=== PATIENT | female | born 1995 | race Caucasian/White ===

== ENCOUNTER 2021-04-08 05:10 | Emergency (ER) | payer MEDICAID ==
[~2021-04-08] VITALS: Ht 170.2 cm; Wt 59.0 kg
[2021-04-08 05:26] VITALS: BP 130/100
--- NOTE | 2021-04-08 05:29 | PHYS DOC ---
Past Medical History Past Medical History: No Pertinent History, Alcoholism (FRANKIE FARIA DO) Past Surgical History: No Surgical History (FRANKIE FARIA DO) Alcohol Use: Heavy Drug Use: None (FRANKIE FARIA DO) General Adult EDM: Chief Complaint: SHOULDER INJURY Problems: (1) Shoulder pain, acute (FRANKIE FARIA DO) HPI: HPI: 26-year-old female presents to the emergency department complaining of right shoulder pain that occurred about 1 hour ago when she fell in the kitchen after drinking alcohol. She admits that she drank about 1 pint of [place] today and fell in the kitchen. She denies any further pain, head trauma, altered sensation of the arm or forearm, forearm pain, hand pain. She notes that her lateral range of motion of the right shoulder limited secondary to pain. Denies fever cough shortness of breath, further intoxicants. (FRANKIE FARIA DO) Review of Systems: Review of Systems: Review of systems otherwise unremarkable except for what was mentioned in the HPI (FRANKIE FARIA DO) Heart Score: C/O Chest Pain: No (FRANKIE FARIA DO) C/O Chest Pain: N/A (GALA ERIC DO) Allergies: Allergies: Allergies Coded Allergies Type Severity Reaction Last Updated Verified latex Allergy Unknown 04/08/21 Yes (FRANKIE FARIA DO) Physical Exam: PE: Constitutional: No acute distress, non-toxic appearance. HENT: Atraumatic, bilateral external ears normal, nose normal. Eyes: PERRLA, EOMI, conjunctiva normal, no discharge. Neck: Normal range of motion, supple, no stridor. Cardiovascular: Heart rate regular rhythm. 2+ radial pulses Lungs & Thorax: No respiratory distress, symmetrical expansion. Bilateral breath sounds clear to auscultation Abdomen: Soft, no tenderness Skin: Warm, dry. Extremities: Right shoulder deformity is noted, no forearm tenderness, no humeral tenderness, no elbow tenderness no wrist tenderness Neurologic: Alert and oriented X 3, normal motor function, normal sensory function, no focal deficits noted. Non ataxic gait. GCS 15. Psychologic: Affect normal, judgment normal, mood normal. (FRANKIE FARIA DO) Current Patient Data: Labs: Laboratory Tests Test 04/08/21 05:17 POC Urine HCG, Qualitative Hcg negative (Negative) (FRANKIE FARIA DO) Radiology/Procedures: Radiology/Procedures: [facility] [address] [place], [place] [id number] IMAGING REPORT Signed PATIENT: TONI KUNZ ACCOUNT: [id number] : 1995 LOCATION: ER AGE: 26 SEX: F EXAM STATUS: REG ER ORD. PHYSICIAN: FRANKIE FARIA DO REASON: shoulder pain PROCEDURE: SHOULDER 2+V RIGHT Study: XR SHOULDER_RIGHT 2+ VIEWS Indication: Shoulder pain. Comparison: None. Findings: Mild widening of the AC joint. Lateral downsloping of the acromion. Glenohumeral joint alignment is normal. No acute fracture. Impression: Mild widening of the AC joint. This could be chronic but correlate for pinpoint tenderness to suggest grade 1 AC joint injury. No acute fracture or glenohumeral dislocation. Electronically signed by: SIRENA CORONADO MD (04/08/2021 6:44 AM) [facility] DICTATED and SIGNED BY: SIRENA CORONADO MD DATE: 04/08/21 [id number] (GALA ERIC DO) Course & Med Decision Making: Course & Med Decision Making Transfer care to Dr. Eric at 0600, pending x-ray (FRANKIE FARIA DO) Course & Med Decision Making Patient is a 26-year-old female who present to ER after a fall this morning, complains of right shoulder pain. X-ray of the right shoulder show some mild AC joint separation. Patient denies any chest pain, no pelvic pain, no back pain, no hip pain, no head or neck injury. Patient declines any pain medication at this time. Patient be discharged home with a home sling, she will need to follow-up with orthopedics for outpatient evaluation. (GALA ERIC DO) Departure Departure Impression: Primary Impression: Acromioclavicular joint separation, type 1 Disposition: 01 HOME / SELF CARE / HOMELESS Condition: STABLE Referrals: NO PCP (PCP) MARY CHOW DO Please call this orthopedic surgeon for outpatient follow up next week. Patient Instructions: Shoulder Separation Additional Instructions: Thank you for visiting our Emergency Department. We appreciate you trusting us with your care. If any additional problems come up don't hesitate to return to visit us. Please follow up with your primary care provider so they can plan additional care if needed and know about the problem that you had. If symptoms worsen come back to the Emergency Department. Any concerning symptoms that start such as chest pain, shortness of air, weakness or numbness on one side of the body, running high fevers or any other concerning symptoms return to the ER. Scripts Naproxen Sodium (ANAPROX DS) 550 Mg Tablet 1 TAB PO BID PRN for PAIN for 15 Days, #30 TAB 0 Refills Prov: GALA ERIC DO 04/08/21 FRANKIE FARIA DO Apr 08, 2021 05:29 GLAA ERIC DO Apr 08, 2021 07:24
--- NOTE | 2021-04-08 06:46 | RAD ---
Study: XR SHOULDER_RIGHT 2+ VIEWS Indication: Shoulder pain. Comparison: None. Findings: Mild widening of the AC joint. Lateral downsloping of the acromion. Glenohumeral joint alignment is n ormal. No acute fracture. Impression: Mild widening of the AC joint. This could be chronic but correlate for pinpoint tenderness to suggest grade 1 AC joint injury. No acute fracture or glenohumeral dislocation. Electronically signed by: SIRENA CORONADO MD (04/08/2021 6:44 AM) [facility]
[2021-04-08] MEDS ORDERED: NAPR-682 PO (07:24)
== END 2021-04-08 07:30 | disposition home or self-care (01) ==
LOC: ER 05:10
DX: S43.101A Unspecified dislocation of right acromioclavicular joint, initial encounter (principal); Z91.040 Latex allergy status; W18.39XA Other fall on same level, initial encounter; Y93.89 Activity, other specified; Y92.090 Kitchen in other non-institutional residence as the place of occurrence of the external cause; Y99.8 Other external cause status
CPT/HCPCS: 73030; 81025; 99283; A4565